=== PATIENT | male | born 1990 | race Hispanic/Latino ===

== ENCOUNTER 2018-08-22 12:51 | Outpatient (CLI) | payer BC ==
[~2018-08-22 12:51] MED LIST: MD-Gastroview 120 ML BOT ONE
--- NOTE | 2018-08-22 14:36 | RAD ---
SMALL BOWEL STANDARD: HISTORY: Epigastric pain, R10.13. COMPARISON: None. TECHNIQUE/FINDINGS: The patient was given Gastrografin contrast. Contrast passes through the stomach, small bowel and se en within the transverse colon within 30 minutes. IMPRESSION: No evidence for bowel obstruction. Contrast passes through the small bowel into the transverse colon within 30 minutes. POS: JOSE C
== END 2018-08-22 12:52 | disposition home or self-care (01) ==
LOC: RAD 12:51
PROVIDERS: ATTEND Internal Medicine Gastroenterology
DX: R10.13 Epigastric pain (principal)
CPT/HCPCS: 74250; Q9963